=== PATIENT | female | born 1955 | race Hispanic/Latino ===

== ENCOUNTER 2018-07-26 16:28 | Emergency (ER) | payer SELFPAY ==
[2018-07-26] MEDS ORDERED: Ondansetron ODT 4 MG TAB ONE (17:14)
[2018-07-26] MEDS ORDERED: traMADol HCl 50 MG TAB ONE (18:23)
--- NOTE | 2018-07-26 19:03 | CT ---
CT OF THE BRAIN WITHOUT CONTRAST: 07/26/18 INDICATION: History of fall with head injury. COMPARISON: Prior exam dated 09/28/16. FINDINGS: No acute infarct, hemorrhage, or hydrocephalus is present. Septum pellucidum and third ventricle are midline. Skull and extracranial soft tissues are within normal limits. There are stable mild chronic small vessel white matter ischemic change. Mastoid air cells are clear. Paranasal sinuses are clear. Skull is intact. IMPRESSION: No acute intracranial abnormality. POS: ANGELA
--- NOTE | 2018-07-26 19:16 | RAD ---
THREE VIEWS LEFT SHOULDER: 07/26/18 INDICATION: Left shoulder pain. COMPARISON: None. FINDINGS: No acute fracture or subluxation is evident. There is mild left AC joint osteoarthrosis. No acute fra cture or subluxation is evident. IMPRESSION: No acute osseous abnormality. POS: TONY
--- NOTE | 2018-07-26 19:18 | RAD ---
FOUR VIEWS OF THE CERVICAL SPINE: 07/26/18 INDICATION: Fall from ladder. FINDINGS: The lateral masses appear symmetric. There is straightening of the normal cervical lordosis. Cervical spine is evaluated at C7-T1. There is mild multilevel disc degenerative facet osteoarthritic change. Prevertebral soft tissues are normal appearing. Lung apices are clear. IMPRESSION: 1. No definite acute osseous abnormality. 2. Moderate spondylosis of the cervical spine. POS: ANGELA
== END 2018-07-26 18:50 | disposition home or self-care (01) ==
LOC: ERS 16:28
DX: S09.90XA Unspecified injury of head, initial encounter (principal); S10.93XA Contusion of unspecified part of neck, initial encounter; S40.012A Contusion of left shoulder, initial encounter; E03.9 Hypothyroidism, unspecified; E78.5 Hyperlipidemia, unspecified; I10 Essential (primary) hypertension; F17.210 Nicotine dependence, cigarettes, uncomplicated; Z79.899 Other long term (current) drug therapy; W11.XXXA Fall on and from ladder, initial encounter
CPT/HCPCS: 70450; 72040; Q0162

== ENCOUNTER 2018-10-29 07:39 | Emergency (ER) | payer SELFPAY ==
[2018-10-29 08:38] LABS: #Basophils 0.1 thou/uL (0.0-0.2); #Eosinphils 0.3 thou/uL (0.0-0.7); #Lymphocytes 2.4 thou/uL (1.20-3.40); #Monocytes 0.4 thou/uL (0.11-0.59); #Neutrophils 2.6 thou/uL (1.40-6.50); %Basophils 1.1 % (0.0-1.0); %Eosinophils 4.8 % (0.0-10.0); %Lymphocytes 41.7 % (21.0-51.0); %Monocytes 7.7 % (0.0-10.0); %Neutrophils 44.7 % (42.0-75.0); Mean Corpuscular HGB CONC 33.9 g/dL (32.0-36.0); Mean Corpuscular Volume 94.4 fL (78.0-98.0); Mean Platelet Volume 7.9 fL (7.4-10.4); Platelet Count 160 thou/uL (130-400); RBC Distribution Width 11.7 % (11.5-14.5); Red Blood Cell (RBC) Count 4.37 mill/uL (4.20-5.40); White Blood Cell (WBC) Count 5.8 thou/uL (4.8-10.8)
[2018-10-29 09:00] LABS: ALT (SGPT) 19 U/L (8-55); AST (SGOT) 20 U/L (5-34); Alkaline Phosphatase 131 U/L (40-150); Anion Gap 9 mmol/L (10-20); BUN (Urea Nitrogen) 17 mg/dL (9.8-20.1); Bilirubin, Total 0.8 mg/dL (0.2-1.2); Calc. Creatinine Clearance 0 mL/min (70-130); Calcium 9.5 mg/dL (7.8-10.44); Carbon Dioxide 27 mmol/L (23-31); Chloride 109 mmol/L (98-107); Estimated GFR-MDRD 67; Globulin 3.7 g/dL (2.4-3.5); Glucose 99 mg/dL (80-115); Lipase 23 U/L (8-78); Potassium 4.3 mmol/L (3.5-5.1); Protein, Total 7.7 g/dL (6.0-8.3); Sodium 141 mmol/L (136-145)
[2018-10-29 09:07] LABS: Bilirubin Negative (Negative); Blood, Urine Negative (Negative); Clarity CLEAR (Clear); Glucose, Urine (Dipstick) Negative (Negative); Leukocyte Small (Negative); Nitrite Negative (Negative); Protein, Urine (Dipstick) Negative (Neg-Trace); Specific Gravity, Urine 1.018 (1.002-1.036); Urobilinogen 0.2 mg/dL (0.2-1.0); pH, Urine 5.5 (5.0-9.0)
[2018-10-29 09:09] LABS: Bacteria/HPF None Seen HPF (None Seen); Hyaline Casts/LPF 4-6 HYALINE CAST LPF (0-3 Hyaline); Pathc Cast-AUWi Flag 0.72 (0-2.49); RBC/HPF 0-3 HPF (0-3)
--- NOTE | 2018-10-29 09:29 | RAD ---
SINGLE VIEW OF THE CHEST: COMPARISON: 10/22/2015. HISTORY: Left upper quadrant pain shooting to the back since Wednesday. FINDINGS: Single view of the chest shows a normal sized cardiomediastinal silhouette. There is no evidence of c onsolidation, mass, or pleural effusion. The bones are unremarkable. IMPRESSION: No evidence of acute cardiopulmonary disease. POS: [facility]
--- NOTE | 2018-10-29 09:43 | CT ---
CT ABDOMEN AND PELVIS WITH IV CONTRAST: HISTORY: Abdominal pain. COMPARISON: 01/03/2016. FINDINGS: Lung bases are clear. The gallbladder is surgically absent. Right renal cyst is stable. The liver, spleen, left kidney, adrenal glands, and pancreas are otherwise unremarkable. No enlarged lymph nod es or free fluid. 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 Lack of oral contrast limits evaluation of the bowel. No evidence of obstruction. Appendix not well delineated. No evidence of inflammation. IMPRESSION: No significant abnormalities are demonstrated. Chronic-type findings are stable. POS: [facility]
[2018-10-29] MEDS ORDERED: Iopamidol 370 76% 100 ML VIAL ONE (12:40)
== END 2018-10-29 10:27 | disposition home or self-care (01) ==
LOC: ERS 07:39
DX: K29.70 Gastritis, unspecified, without bleeding (principal); E03.9 Hypothyroidism, unspecified; E78.5 Hyperlipidemia, unspecified; I10 Essential (primary) hypertension; F17.210 Nicotine dependence, cigarettes, uncomplicated; Z79.899 Other long term (current) drug therapy
CPT/HCPCS: 36415; 71045; 74177; 80053; 81003; 81015; 82150; 83690; 84484; 85025; 93005; 96360; Q9967

== ENCOUNTER 2020-05-28 13:07 | Emergency (ER) | payer MEDICARE, MEDICAID, OTHER ==
[2020-05-29 13:03] LABS: SARS-CoV-2 MS2 Positive; SARS-CoV-2 N Gene Positive; SARS-CoV-2 S Gene Positive; SARS-CoV-2 by NAA DETECTED (NotDetected); SARS-CoV-2 orf1ab Positive
== END 2020-05-28 13:40 | disposition home or self-care (01) ==
LOC: ERS 13:07
DX: U07.1 COVID-19 (principal); G89.29 Other chronic pain; E03.9 Hypothyroidism, unspecified; I10 Essential (primary) hypertension; E78.5 Hyperlipidemia, unspecified; F17.210 Nicotine dependence, cigarettes, uncomplicated; Z79.899 Other long term (current) drug therapy
CPT/HCPCS: 87635; 99283; U0003

== ENCOUNTER 2022-03-24 01:59 | Emergency (ER) | payer MEDICARE, MEDICAID ==
[2022-03-24 02:44] LABS: Bilirubin Negative (Negative); Blood, Urine Trace (Negative); Clarity Clear (Clear); Glucose, Urine (Dipstick) Normal (Negative); Ketone, Urine Negative (Negative); Leukocyte 500 Leu/uL (Negative); Nitrite Negative (Negative); Protein, Urine (Dipstick) Negative (Neg-Trace); Specific Gravity, Urine 1.011 (1.002-1.036); Urobilinogen Normal mg/dL (Less than 2); pH, Urine 6.5 (5.0-9.0)
[2022-03-24 03:08] LABS: RBC/HPF 0-3 HPF (0-3)
[2022-03-24 03:09] LABS: Squamous Epithelial 0-3 HPF (0-3)
[2022-03-24] MEDS ORDERED: Ondansetron ODT 4 MG TAB ONE (04:05)
[2022-03-24] MEDS ORDERED: Acetaminophen 500 MG TAB ONE (04:05)
[2022-03-24 04:25] LABS: #Basophils 0.1 thou/uL (0.0-0.2); #Eosinphils 0.3 thou/uL (0.0-0.7); #Lymphocytes 3.3 thou/uL (1.20-3.40); #Monocytes 0.7 thou/uL (0.11-0.59); #Neutrophils 5.5 thou/uL (1.40-6.50); %Basophils 0.7 % (0.0-1.0); %Eosinophils 2.8 % (0.0-10.0); %Lymphocytes 33.4 % (21.0-51.0); %Monocytes 7.4 % (0.0-10.0); %Neutrophils 55.7 % (42.0-75.0); Hemoglobin 13.9 g/dL (12.0-16.0); Mean Corpuscular HGB CONC 33.8 g/dL (32.0-36.0); Mean Corpuscular Hemoglobin 32.9 pg (27.0-31.0); Mean Corpuscular Volume 97.4 fL (78.0-98.0); Mean Platelet Volume 8.1 fL (7.4-10.4); Platelet Count 143 thou/uL (130-400); RBC Distribution Width 11.9 % (11.5-14.5); Red Blood Cell (RBC) Count 4.23 mill/uL (4.20-5.40); White Blood Cell (WBC) Count 9.9 thou/uL (4.8-10.8)
[2022-03-24 04:44] LABS: ALT (SGPT) 39 U/L (8-55); AST (SGOT) 26 U/L (5-34); Albumin 3.9 g/dL (3.4-4.8); Alkaline Phosphatase 127 U/L (40-110); Anion Gap 11 mmol/L (10-20); BUN (Urea Nitrogen) 18 mg/dL (9.8-20.1); Calc. Creatinine Clearance 0 mL/min (70-130); Calcium 9.7 mg/dL (7.8-10.44); Carbon Dioxide 28 mmol/L (23-31); Chloride 105 mmol/L (98-107); Estimated GFR 72; Globulin 3.5 g/dL (2.4-3.5); Glucose 109 mg/dL (80-115); Protein, Total 7.4 g/dL (5.8-8.1); Sodium 140 mmol/L (136-145)
[2022-03-24] MEDS ORDERED: Ketorolac Tromethamine 30 MG/ML VIAL ONE (04:51)
== END 2022-03-24 06:33 | disposition home or self-care (01) ==
LOC: ERS 01:59
DX: N10 Acute pyelonephritis (principal); I10 Essential (primary) hypertension; E03.9 Hypothyroidism, unspecified; E78.5 Hyperlipidemia, unspecified; F17.210 Nicotine dependence, cigarettes, uncomplicated; Z79.899 Other long term (current) drug therapy
CPT/HCPCS: 36415; 74176; 80053; 81003; 81015; 85025; 87077; 87086; 87186; 96372; J1885; Q0162

== ENCOUNTER 2022-07-12 01:40 | Emergency (ER) | payer MEDICARE, MEDICAID ==
[2022-07-12] MEDS ORDERED: Acetaminophen 500 MG TAB ONE (04:11)
== END 2022-07-12 04:16 | disposition home or self-care (01) ==
LOC: ERS 01:40
DX: R05.9 Cough, unspecified (principal); F17.210 Nicotine dependence, cigarettes, uncomplicated; E03.9 Hypothyroidism, unspecified; I10 Essential (primary) hypertension; E78.5 Hyperlipidemia, unspecified
CPT/HCPCS: 71045

== ENCOUNTER 2022-12-01 10:08 | Outpatient (CLI) | payer MEDICARE, MEDICAID | END 2022-12-01 10:09 | disposition home or self-care (01) | LOC: MRI 10:08 | PROVIDERS: ATTEND Family Medicine | DX: M48.062 Spinal stenosis, lumbar region with neurogenic claudication (principal); G89.4 Chronic pain syndrome; M47.26 Other spondylosis with radiculopathy, lumbar region; N20.0 Calculus of kidney; M47.817 Spondylosis without myelopathy or radiculopathy, lumbosacral region; M51.16 Intervertebral disc disorders with radiculopathy, lumbar region | CPT/HCPCS: 72100; 72148 ==

== ENCOUNTER 2023-05-17 07:51 | Emergency (ER) | payer MEDICARE, MEDICAID ==
[2023-05-17] MEDS ORDERED: Gabapentin 300 MG CAP PO SCH (08:45)
[2023-05-17] MEDS ORDERED: Acetaminophen 500 MG TAB ONE (08:55)
[2023-05-17] MEDS ORDERED: Ketorolac Tromethamine 30 MG/ML VIAL ONE (10:10)
== END 2023-05-17 10:36 | disposition home or self-care (01) ==
LOC: ERS 07:51
DX: M54.32 Sciatica, left side (principal); I10 Essential (primary) hypertension; F17.210 Nicotine dependence, cigarettes, uncomplicated
CPT/HCPCS: 96372; J1885

== ENCOUNTER 2024-03-13 09:26 | Outpatient (CLI) | payer MEDICARE | END 2024-03-13 09:27 | disposition home or self-care (01) | LOC: BICMAMMO 09:26 | PROVIDERS: ATTEND Student in an Organized Health Care Education/Training Program | DX: Z12.31 Encounter for screening mammogram for malignant neoplasm of breast (principal) | CPT/HCPCS: 77063; 77067 ==